=== PATIENT | female | born 1950 | race African-American/Black ===

== ENCOUNTER 2019-01-03 15:42 | Outpatient (CLI) | payer MEDICARE, MEDICAID ==
--- NOTE | 2019-01-03 16:14 | RAD ---
EXAM: XR Tib Fib Lt Leg 2 View DATE: 01/03/2019 4:15 PM INDICATION: Cellulitis of the left leg COMPARISON: None. FINDING: There is partial visualization of a left total knee prosthesis. There is circumferential so ft tissue swelling of the left foreleg. No acute osseous abnormality is evident. There are mild vascular calcifications within the soft tissues of the left leg distally. IMPRESSION:Diffuse soft tissue swelling left foreleg.
== END 2019-01-03 15:43 | disposition home or self-care (01) ==
LOC: NAV RAD 15:42
PROVIDERS: ATTEND Family Medicine
DX: L03.116 Cellulitis of left lower limb (principal); M79.89 Other specified soft tissue disorders

== ENCOUNTER 2019-01-15 02:18 | Emergency (ER) | payer MEDICARE, MEDICAID ==
[2019-01-15] MEDS ORDERED: cefTRIAXone\\ROCEPHIN 1 GM VIAL ONE (02:49)
[2019-01-15] MEDS ORDERED: Lidocaine 1% (PF) 30 ML VIAL ONE (02:49)
[2019-01-15] MEDS ORDERED: traMADol HCl 50 MG TAB ONE (03:15)
--- NOTE | 2019-01-15 07:41 | RAD ---
EXAM: 2 views of the left tibia/fibula HISTORY: Leg pain and swelling COMPARISON: None FINDINGS: There is no evidence of acute fracture or dislocation. Moderate diffuse soft tissue swellin g is seen. The patient has a left knee prosthesis without perihardware lucency. IMPRESSION: No evidence of acute osseous abnormality.
== END 2019-01-15 03:20 | disposition home or self-care (01) ==
LOC: NAV ERS 02:18
DX: L03.116 Cellulitis of left lower limb (principal); E11.9 Type 2 diabetes mellitus without complications; E78.5 Hyperlipidemia, unspecified; I10 Essential (primary) hypertension; M10.9 Gout, unspecified; F17.210 Nicotine dependence, cigarettes, uncomplicated; F32.9 Major depressive disorder, single episode, unspecified
CPT/HCPCS: 96372; J0696; J2001

== ENCOUNTER 2019-03-28 14:18 | Emergency (ER) | payer MEDICARE, MEDICAID | END 2019-03-28 15:40 | disposition home or self-care (01) | LOC: NAV ERS 14:18 | DX: E11.621 Type 2 diabetes mellitus with foot ulcer (principal); L97.529 Non-pressure chronic ulcer of other part of left foot with unspecified severity; L03.116 Cellulitis of left lower limb; E11.9 Type 2 diabetes mellitus without complications; E78.5 Hyperlipidemia, unspecified; E78.00 Pure hypercholesterolemia, unspecified; I10 Essential (primary) hypertension; M10.9 Gout, unspecified; F32.9 Major depressive disorder, single episode, unspecified; F17.210 Nicotine dependence, cigarettes, uncomplicated | CPT/HCPCS: 87070; 87077; 87186; 87205; 99283 ==

== ENCOUNTER 2020-10-22 11:49 | Outpatient (CLI) | payer MEDICAID, MEDICARE | END 2020-10-22 11:50 | disposition home or self-care (01) | LOC: NAV RAD 11:49 | PROVIDERS: ATTEND Family Medicine | DX: M47.26 Other spondylosis with radiculopathy, lumbar region (principal) | CPT/HCPCS: 72100 ==

== ENCOUNTER 2023-04-23 17:09 | Emergency (ER) | payer MEDICARE ==
[2023-04-23 18:10] LABS: #Eosinphils 0.2 thou/uL (0.0-0.7); #Lymphocytes 1.6 thou/uL (1.20-3.40); #Monocytes 0.3 thou/uL (0.11-0.59); #Neutrophils 2.8 thou/uL (1.40-6.50); %Basophils 0.8 % (0.0-1.0); %Eosinophils 3.2 % (0.0-10.0); %Lymphocytes 32.8 % (21.0-51.0); %Monocytes 5.4 % (0.0-10.0); %Neutrophils 57.8 % (42.0-75.0); Hematocrit 36.8 % (36.0-47.0); Hemoglobin 10.5 g/dL (12.0-16.0); Mean Corpuscular HGB CONC 28.5 g/dL (32.0-36.0); Mean Corpuscular Hemoglobin 29.6 pg (27.0-31.0); Mean Platelet Volume 6.8 fL (7.4-10.4); Platelet Count 247 10x3/uL (130-400); RBC Distribution Width 15.5 % (11.5-14.5); Red Blood Cell (RBC) Count 3.55 mill/uL (4.20-5.40); White Blood Cell (WBC) Count 4.9 10x3/uL (4.8-10.8)
[2023-04-23 18:28] LABS: ALT (SGPT) 18 U/L (8-55); AST (SGOT) 20 U/L (5-34); Albumin 4.1 g/dL (3.4-4.8); Alkaline Phosphatase 74 U/L (40-110); Anion Gap 13 mmol/L (10-20); BUN (Urea Nitrogen) 42 mg/dL (9.8-20.1); Bilirubin, Total 0.3 mg/dL (0.2-1.2); Calc. Creatinine Clearance 0 mL/min (70-130); Calcium 9.2 mg/dL (7.8-10.44); Carbon Dioxide 17 mmol/L (23-31); Chloride 116 mmol/L (98-107); Estimated GFR 32; Globulin 3.3 g/dL (2.4-3.5); Glucose 91 mg/dL (83-110); Magnesium 1.9 mg/dL (1.6-2.6); Protein, Total 7.4 g/dL (5.8-8.1); Sodium 140 mmol/L (136-145)
[2023-04-23 18:29] LABS: Potassium 6.1 mmol/L (3.5-5.1); Troponin I Less than 0.010 ng/mL (< 0.028)
[2023-04-23] MEDS ORDERED: Dextrose 50% Abboject 50 ML SYRINGE ONE ×2 (19:28→19:40)
[2023-04-23] MEDS ORDERED: Insulin Regular 300 UNITS/3 ML VIAL ONE (19:28)
[2023-04-23] MEDS ORDERED: Sodium Bicarb 50 MEQ/50 ML Abboject 8.4% SYRINGE ONE ×2 (19:28→19:29)
[2023-04-23] MEDS ORDERED: Sodium Chloride 0.9% 1,000 ML ONE (19:30)
[2023-04-23 22:12] LABS: Anion Gap 17 mmol/L (10-20); BUN (Urea Nitrogen) 38 mg/dL (9.8-20.1); Calc. Creatinine Clearance 0 mL/min (70-130); Calcium 9.7 mg/dL (7.8-10.44); Carbon Dioxide 18 mmol/L (23-31); Chloride 115 mmol/L (98-107); Estimated GFR 34; Glucose 59 mg/dL (83-110); Potassium 4.3 mmol/L (3.5-5.1); Sodium 146 mmol/L (136-145)
== END 2023-04-23 22:34 | disposition home or self-care (01) ==
LOC: NAV ERS 17:09
DX: E87.5 Hyperkalemia (principal); I10 Essential (primary) hypertension; E11.9 Type 2 diabetes mellitus without complications; M10.9 Gout, unspecified; F17.210 Nicotine dependence, cigarettes, uncomplicated
CPT/HCPCS: 36416; 80053; 83735; 84484; 85025; 93005; 96374; 96375; 36415-59; J1815; J7050; J7999